=== PATIENT | female | born 1945 | race Caucasian/White ===

== ENCOUNTER 2022-01-16 08:36 | Observation (INO) ==
[2022-01-16] MEDS ORDERED: CeFAZolin Syr 2,000MG/20 ML 2,000 MG/20 ML SYRINGE IVPB ONE (09:23)
[2022-01-16] MEDS: Ringers Solution, Lactated 1,000 ML IVC SCH (09:45)
[2022-01-16] MEDS ORDERED: Acetaminophen IV 1,000 MG/100 ML BAG IVPB ONE (09:46)
[2022-01-16] MEDS ORDERED: Famotidine 20 MG/2 ML VIAL IVP ONE (09:46)
[2022-01-16] MEDS ORDERED: diazePAM 5 MG TABLET PO ONE (09:48)
[2022-01-16 10:08] LABS: Basophils % 0.6 %; Eosinophils # 0.3 K/mcL (0.0-0.6); Eosinophils % 3.7 %; Hematocrit 36.2 % (35.3-44.9); Hemoglobin 11.4 g/dL (11.5-15.4); Immature Granulocytes % 0.4 % (0-4); Lymphocytes # 1.8 K/mcL (0.6-4.6); Lymphocytes % 25.1 %; Mean Corpuscular HGB Conc 31.5 g/dL (31.6-35.5); Mean Corpuscular Hemoglobin 29.7 pg (28.0-33.3); Mean Corpuscular Volume 94.3 fL (83.0-100.0); Mean Platelet Volume 10.9 fL (9.4-12.4); Monocytes # 0.6 K/mcL (0.0-1.3); Monocytes % 8.4 %; Neutrophils # 4.4 K/mcL (1.6-8.9); Platelet Count 157 K/mcL (140-400); Red Blood Count 3.84 M/mcL (3.82-4.97); Red Cell Distribution Width 15.3 % (11.5-14.5); Segmented Neutrophils % 61.8 %; White Blood Count 7.1 K/mcL (4.3-11.1)
[2022-01-16 10:22] LABS: INR 1.1; Prothrombin Time 12.6 Seconds (9.4-12.1)
[2022-01-16 10:24] LABS: Activated Partial Thrombo Time 33.7 Seconds (26.0-36.0)
[2022-01-16] MEDS ORDERED: Lidocaine -MPF 2% 5 ML VIAL ONE (10:39)
[2022-01-16] MEDS ORDERED: Ondansetron 4 MG/2 ML VIAL ONE (10:39)
[2022-01-16] MEDS ORDERED: *HR* Propofol 200 MG/20 ML VIAL IVP ONE (10:39)
[2022-01-16] MEDS ORDERED: Lidocaine HCL 4 ML Topical Solution (Laryng-O-Jet Kit Sterile Pak) TP ONE (10:39)
[2022-01-16] MEDS ORDERED: *HR* Succinylcholine 200 MG/10 ML VIAL IVP ONE (10:39)
[2022-01-16 10:40] LABS: Albumin 3.9 g/dL (3.5-5.7); Albumin/Globulin Ratio 1.2 (1.1-2.2); Bilirubin,Total 0.4 mg/dL (0.3-1.0); Calcium 10.2 mg/dL (8.6-10.3); Globulin 3.2 g/dL (2.4-3.5); Potassium 3.7 mEq/L (3.5-5.1); Total Protein 7.1 g/dL (6.4-8.9)
[2022-01-16 10:56] LABS: Estimated Average Glucose 134 mg/dl; Hemoglobin A1C 6.3 %
[2022-01-16] MEDS ORDERED: Albuterol 2.5 MG/3 ML NEBULIZER ONE (11:31)
[2022-01-16] MEDS ORDERED: Albuterol 2.5 MG/3 ML NEBULIZER IH PRN (11:36)
[2022-01-16] MEDS ORDERED: *HR* FentaNYL (PF) 100 MCG/2 ML VIAL ONE (12:03)
[2022-01-16] MEDS ORDERED: *HR* Midazolam HCl 2 MG/2 ML VIAL ONE (12:03)
[2022-01-16] MEDS ORDERED: ROPIVACAINE/PF/NS 0.25% 1 EACH SYRINGE INTRAART ONE (12:07)
[2022-01-16] MEDS ORDERED: *HR* OxyCODONE Immed Rel 5 MG TABLET PO PRN (12:37)
[2022-01-16] MEDS ORDERED: *HR* OxyCODONE/APAP 5/325 TABLET PO PRN (12:37)
[2022-01-16] MEDS ORDERED: Ketorolac 30 MG/ML VIAL IVP PRN (12:37)
[2022-01-16] MEDS ORDERED: Ondansetron 4 MG/2 ML VIAL IVP PRN (12:37)
[2022-01-16] MEDS ORDERED: Sennosides 8.6 MG TABLET PO PRN (12:37)
[2022-01-16] MEDS ORDERED: ALBUTEROL SULFATE 90 MCG IH PRN (12:52)
[2022-01-16] MEDS ORDERED: Heparin 1,000 UNITS/500 mL 500 ML ONE (13:07)
[2022-01-16] MEDS ORDERED: Vancomycin 1,000 MG VIAL ONE (13:30)
[2022-01-16] MEDS ORDERED: Tranexamic Acid 1,000 MG/10 ML VIAL ONE ×2 (14:04→15:01)
[2022-01-16] MEDS ORDERED: Albuterol 2.5 MG/3 ML NEBULIZER IH SCH (16:00)
[2022-01-16] MEDS: Gabapentin 100 MG CAPSULE PO SCH ×2 (18:46→21:47)
[2022-01-16] MEDS: Ketorolac 30 MG/ML VIAL IVP SCH ×2 (18:52→23:51)
[2022-01-16] MEDS: Acetaminophen 325 MG TABLET PO SCH ×2 (18:53→23:50)
[2022-01-16] MEDS: CeFAZolin 2 GM/120 ML BAG IVPB SCH ×2 (18:58→23:51)
[2022-01-16] MEDS ORDERED: Levalbuterol Neb 1.25 MG/3 ML ONE (19:44)
[2022-01-16] MEDS: Levalbuterol Neb 1.25 MG/3 ML IH SCH ×2 (19:47→23:51)
[2022-01-16] MEDS ORDERED: Budesonide/Formoterol 160/4.5 1 PUFF INH IH ONE (19:50)
[2022-01-16] MEDS: Budesonide/Formoterol 160/4.5 1 PUFF INH IH SCH (19:51)
[2022-01-16] MEDS ORDERED: NON-FORMULARY MEDICATION 1 EACH EACH (Budesonide/Glycopyr/Formoterol [Breztri Aerosphere I IH SCH (21:00)
[2022-01-16] MEDS ORDERED: NON-FORMULARY MEDICATION 1 EACH EACH (Formoterol Fumarate [Perforomist] 20 MCG/2 ML Vial.N IH SCH (21:00)
[2022-01-16] MEDS: Aspirin Enteric Coated 81 MG Tablet PO SCH (21:47)
[2022-01-16] MEDS ORDERED: Budesonide/Formoterol 160/4.5 1 PUFF INH IH SCH (22:00)
[2022-01-17] MEDS: Levalbuterol Neb 1.25 MG/3 ML IH SCH ×4 (03:23→21:01)
[2022-01-17] MEDS: Levothyroxine 25 MCG TABLET PO SCH (06:12)
[2022-01-17] MEDS: Ketorolac 30 MG/ML VIAL IVP SCH ×4 (06:12→23:43)
[2022-01-17] MEDS: Acetaminophen 325 MG TABLET PO SCH ×4 (06:12→23:43)
[2022-01-17] MEDS: *HR* OxyCODONE Immed Rel 5 MG TABLET PO PRN ×2 (09:07→19:54)
[2022-01-17] MEDS: Aspirin Enteric Coated 81 MG Tablet PO SCH ×2 (09:07→19:49)
[2022-01-17] MEDS: Gabapentin 100 MG CAPSULE PO SCH ×3 (09:07→19:49)
[2022-01-17] MEDS: predniSONE 20 MG TABLET PO SCH (09:07)
[2022-01-17] MEDS: *HR* Metformin 500 MG TABLET PO SCH ×2 (09:07→15:51)
[2022-01-17] MEDS: Fluticasone Propionate Nasal 50 MCG/SPRAY BOTTLE NS SCH (09:08)
[2022-01-17] MEDS: Budesonide/Formoterol 160/4.5 1 PUFF INH IH SCH ×2 (10:22→21:01)
[2022-01-17] MEDS: Tiotropium 10 INH DOSE IH SCH (10:24)
[2022-01-17] MEDS: MOM Conc 10 ML UD.LIQ PO PRN (17:51)
[2022-01-17] MEDS: Ringers Solution, Lactated 1,000 ML IVC SCH ×2 (19:48)
[2022-01-18] MEDS: *HR* OxyCODONE Immed Rel 5 MG TABLET PO PRN ×2 (02:46→21:32)
[2022-01-18] MEDS: Levalbuterol Neb 1.25 MG/3 ML IH SCH ×4 (04:13→22:00)
[2022-01-18] MEDS: Ringers Solution, Lactated 1,000 ML IVC SCH (05:50)
[2022-01-18] MEDS: Levothyroxine 25 MCG TABLET PO SCH (05:50)
[2022-01-18] MEDS: Acetaminophen 325 MG TABLET PO SCH ×4 (05:50→23:45)
[2022-01-18] MEDS: Ketorolac 30 MG/ML VIAL IVP SCH ×4 (05:50→23:43)
[2022-01-18] MEDS: predniSONE 20 MG TABLET PO SCH (08:23)
[2022-01-18] MEDS: Gabapentin 100 MG CAPSULE PO SCH ×3 (08:23→21:07)
[2022-01-18] MEDS: *HR* Metformin 500 MG TABLET PO SCH ×2 (08:23→17:54)
[2022-01-18] MEDS: Aspirin Enteric Coated 81 MG Tablet PO SCH ×2 (08:23→21:07)
[2022-01-18] MEDS: Budesonide/Formoterol 160/4.5 1 PUFF INH IH SCH ×2 (10:38→22:00)
[2022-01-18] MEDS: Tiotropium 10 INH DOSE IH SCH (10:38)
[2022-01-18] MEDS: Fluticasone Propionate Nasal 50 MCG/SPRAY BOTTLE NS SCH (12:46)
[2022-01-18] MEDS: MOM Conc 10 ML UD.LIQ PO PRN (21:36)
[2022-01-19 00:08] VITALS: TEMP 97.9
[2022-01-19 03:19] VITALS: BP 144/69; PULSE 65
[2022-01-19] MEDS: Levalbuterol Neb 1.25 MG/3 ML IH SCH ×3 (05:34→15:33)
[2022-01-19] MEDS: Ketorolac 30 MG/ML VIAL IVP SCH ×2 (06:30→14:18)
[2022-01-19] MEDS: Levothyroxine 25 MCG TABLET PO SCH (06:31)
[2022-01-19] MEDS: Acetaminophen 325 MG TABLET PO SCH ×2 (06:31→13:16)
[2022-01-19] MEDS: predniSONE 20 MG TABLET PO SCH (09:00)
[2022-01-19] MEDS: Aspirin Enteric Coated 81 MG Tablet PO SCH (09:00)
[2022-01-19] MEDS: Gabapentin 100 MG CAPSULE PO SCH (09:01)
[2022-01-19] MEDS: Fluticasone Propionate Nasal 50 MCG/SPRAY BOTTLE NS SCH (09:01)
[2022-01-19] MEDS: *HR* Metformin 500 MG TABLET PO SCH (09:01)
[2022-01-19] MEDS: Budesonide/Formoterol 160/4.5 1 PUFF INH IH SCH (10:18)
[2022-01-19] MEDS: Tiotropium 10 INH DOSE IH SCH (10:18)
[2022-01-19 12:31] LABS: Influenza A PCR Negative (Negative); Influenza B PCR Negative (Negative); Resp. Syncytial Virus PCR Negative (Negative)
[2022-01-19 12:49] LABS: SARS-CoV-2 by PCR (In House) Negative (Negative)
[2022-01-19] MEDS: *HR* OxyCODONE Immed Rel 5 MG TABLET PO PRN (13:15)
[2022-01-19 15:35] VITALS: O2SAT 95
== END 2022-01-19 17:20 ==
LOC: SDCAOSI 08:36 → 4WAOSI 08:36
PROVIDERS: ADMIT Orthopaedic Surgery; ATTEND Orthopaedic Surgery

== ENCOUNTER 2022-02-02 13:48 | Inpatient (IN) ==
[~2022-02-02 13:48] MED LIST: *HR* FentaNYL (PF) 100 MCG/2 ML VIAL IVP PRN; *HR* HYDROmorphone PF 0.5 MG/0.5 ML SYRINGE IVP PRN; *HR* OxyCODONE Immed Rel 5 MG TABLET PO PRN; Albuterol 2.5 MG/3 ML NEBULIZER IH PRN; Ondansetron 4 MG/2 ML VIAL IVP PRN
[2022-02-02] MEDS ORDERED: Famotidine 20 MG/2 ML VIAL IVP ONE (14:03)
[2022-02-02] MEDS ORDERED: Albuterol 2.5 MG/3 ML NEBULIZER IH ONE (14:03)
[2022-02-02] MEDS ORDERED: *HR* Succinylcholine 200 MG/10 ML VIAL IVP ONE (14:05)
[2022-02-02] MEDS ORDERED: *HR* Propofol 200 MG/20 ML VIAL IVP ONE (14:05)
[2022-02-02] MEDS ORDERED: Lidocaine -MPF 2% 2 ML VIAL ONE (14:05)
[2022-02-02] MEDS ORDERED: *HR* FentaNYL (PF) 100 MCG/2 ML VIAL ONE (14:05)
[2022-02-02] MEDS ORDERED: Acetaminophen 325 MG TABLET PO PRN (17:12)
[2022-02-02] MEDS ORDERED: Naloxone 0.4 MG/ML INJ IVP PRN (17:12)
[2022-02-02] MEDS ORDERED: Ondansetron 4 MG/2 ML VIAL IVP PRN (17:12)
[2022-02-02] MEDS: *HR* HYDROcodone/Acet 5/325 mg TABLET PO PRN (17:42)
[2022-02-02 17:58] LABS: Basophils # 0.1 K/mcL (0.0-0.2); Basophils % 0.5 %; Eosinophils # 0.3 K/mcL (0.0-0.6); Eosinophils % 3.4 %; Hematocrit 34.5 % (35.3-44.9); Hemoglobin 10.7 g/dL (11.5-15.4); Immature Granulocytes % 0.3 % (0-4); Lymphocytes # 2.5 K/mcL (0.6-4.6); Lymphocytes % 26.1 %; Mean Corpuscular Hemoglobin 29.2 pg (28.0-33.3); Mean Corpuscular Volume 94.3 fL (83.0-100.0); Mean Platelet Volume 10.3 fL (9.4-12.4); Monocytes # 0.6 K/mcL (0.0-1.3); Monocytes % 5.7 %; Neutrophils # 6.2 K/mcL (1.6-8.9); Platelet Count 247 K/mcL (140-400); Red Blood Count 3.66 M/mcL (3.82-4.97); Red Cell Distribution Width 15.6 % (11.5-14.5); White Blood Count 9.7 K/mcL (4.3-11.1)
[2022-02-02 18:04] LABS: INR 1.2; Prothrombin Time 13.6 Seconds (9.4-12.1)
[2022-02-02 18:18] LABS: Calcium 10.3 mg/dL (8.6-10.3); Magnesium 1.6 mg/dL (1.6-2.6); Potassium 3.1 mEq/L (3.5-5.1)
[2022-02-02] MEDS ORDERED: Dextrose Gel 15 GM/37.5 ML TUBE PO PRN ×2 (18:43)
[2022-02-02] MEDS ORDERED: *HR* Dextrose 50 % in Water (Syg) 50 ML SYRINGE IVP PRN (18:43)
[2022-02-02] MEDS ORDERED: D5% in Water 1,000 ML IVC PRN (18:43)
[2022-02-02] MEDS: Sennosides/Docusate Sodium TABLET PO SCH (19:54)
[2022-02-02] MEDS: Insulin LISPRO 300 UNITS/3 ML VIAL SUBQ SCH ×2 (19:57→19:58)
[2022-02-02] MEDS ORDERED: polyethylene glycoL 3350 17 GM POWD.PACK PO SCH (21:00)
[2022-02-02] MEDS: Ipratropium/Albuterol Neb 3 ML IH SCH ×2 (21:42→23:20)
[2022-02-02] MEDS: *HR* LORazepam 1 MG TABLET PO PRN (22:38)
[2022-02-03] MEDS: Ipratropium/Albuterol Neb 3 ML IH SCH ×4 (03:45→21:30)
[2022-02-03 07:05] LABS: Red Cell Distribution Width 15.8 % (11.5-14.5)
[2022-02-03 07:07] LABS: Basophils % 0.5 %; Eosinophils # 0.4 K/mcL (0.0-0.6); Eosinophils % 4.9 %; Hematocrit 32.7 % (35.3-44.9); Immature Granulocytes % 0.4 % (0-4); Immature Platelets 4.9 % (1.1-6.1); Lymphocytes # 2.1 K/mcL (0.6-4.6); Lymphocytes % 28.2 %; Mean Corpuscular HGB Conc 30.6 g/dL (31.6-35.5); Mean Corpuscular Hemoglobin 29.2 pg (28.0-33.3); Mean Corpuscular Volume 95.3 fL (83.0-100.0); Mean Platelet Volume 11.3 fL (9.4-12.4); Monocytes # 0.6 K/mcL (0.0-1.3); Monocytes % 7.8 %; Neutrophils # 4.4 K/mcL (1.6-8.9); Platelet Count 195 K/mcL (140-400); Red Blood Count 3.43 M/mcL (3.82-4.97); Segmented Neutrophils % 58.2 %; White Blood Count 7.6 K/mcL (4.3-11.1)
[2022-02-03 07:47] LABS: Calcium 9.5 mg/dL (8.6-10.3); Magnesium 1.9 mg/dL (1.6-2.6); Potassium 3.7 mEq/L (3.5-5.1)
[2022-02-03] MEDS: Sennosides/Docusate Sodium TABLET PO SCH ×2 (09:10→20:21)
[2022-02-03] MEDS: *HR* Enoxaparin 40 MG/0.4 ML SYRINGE SQ SCH (09:10)
[2022-02-03] MEDS: Insulin LISPRO 300 UNITS/3 ML VIAL SUBQ SCH ×4 (09:13→20:22)
[2022-02-03] MEDS: *HR* HYDROcodone/Acet 5/325 mg TABLET PO PRN (09:25)
[2022-02-03 12:37] LABS: Estimated Average Glucose 123 mg/dl; Hemoglobin A1C 5.9 %
[2022-02-03] MEDS: Gabapentin 100 MG CAPSULE PO SCH ×2 (16:28→20:21)
[2022-02-03] MEDS: polyethylene glycoL 3350 17 GM POWD.PACK PO SCH (16:51)
[2022-02-03] MEDS: Aspirin 81 MG TAB.CHEW PO SCH (20:21)
[2022-02-03] MEDS: Budesonide Neb 0.5 MG/2 ML IH SCH (21:34)
[2022-02-04] MEDS ORDERED: *HR* Metoprolol 5 MG/5 ML VIAL IVP ONE (00:42)
[2022-02-04] MEDS: Ipratropium/Albuterol Neb 3 ML IH SCH ×2 (03:49→09:24)
[2022-02-04] MEDS: *HR* Enoxaparin 40 MG/0.4 ML SYRINGE SQ SCH (06:34)
[2022-02-04] MEDS: Insulin LISPRO 300 UNITS/3 ML VIAL SUBQ SCH ×4 (08:15→19:47)
[2022-02-04] MEDS: Gabapentin 100 MG CAPSULE PO SCH ×3 (08:16→19:47)
[2022-02-04] MEDS: Levothyroxine 25 MCG TABLET PO SCH (08:16)
[2022-02-04] MEDS: Aspirin 81 MG TAB.CHEW PO SCH ×2 (08:16→19:47)
[2022-02-04] MEDS: Sennosides/Docusate Sodium TABLET PO SCH ×2 (08:17→19:47)
[2022-02-04 08:49] LABS: Basophils % 0.6 %; Eosinophils # 0.3 K/mcL (0.0-0.6); Eosinophils % 4.1 %; Hematocrit 32.3 % (35.3-44.9); Hemoglobin 10.1 g/dL (11.5-15.4); Immature Granulocytes % 0.3 % (0-4); Lymphocytes % 28.1 %; Mean Corpuscular HGB Conc 31.3 g/dL (31.6-35.5); Mean Corpuscular Hemoglobin 29.2 pg (28.0-33.3); Mean Corpuscular Volume 93.4 fL (83.0-100.0); Monocytes # 0.5 K/mcL (0.0-1.3); Monocytes % 7.2 %; Neutrophils # 4.2 K/mcL (1.6-8.9); Platelet Count 232 K/mcL (140-400); Red Blood Count 3.46 M/mcL (3.82-4.97); Red Cell Distribution Width 15.9 % (11.5-14.5); Segmented Neutrophils % 59.7 %; White Blood Count 7.1 K/mcL (4.3-11.1)
[2022-02-04 09:11] LABS: Calcium 9.8 mg/dL (8.6-10.3); Magnesium 1.8 mg/dL (1.6-2.6); Potassium 3.5 mEq/L (3.5-5.1)
[2022-02-04] MEDS: polyethylene glycoL 3350 17 GM POWD.PACK PO SCH (10:52)
[2022-02-04] MEDS: Budesonide Neb 0.5 MG/2 ML IH SCH ×2 (11:30→22:23)
[2022-02-04] MEDS: *HR* HYDROcodone/Acet 5/325 mg TABLET PO PRN (13:20)
[2022-02-04] MEDS: Bisacodyl 10 MG RECTAL SUPPOSITORY RC SCH (18:39)
[2022-02-04] MEDS ORDERED: Potassium Chloride Elixir 20 MEQ/15 ML UDC PO ONE (21:11)
[2022-02-04] MEDS ORDERED: Magnesium Sulfate 1 GM/102 ML PIGGYBACK IVPB ONE (21:17)
[2022-02-04] MEDS: *HR* LORazepam 1 MG TABLET PO PRN (21:51)
[2022-02-05 01:44] LABS: Basophils % 0.4 %; Eosinophils # 0.3 K/mcL (0.0-0.6); Eosinophils % 3.9 %; Hematocrit 31.7 % (35.3-44.9); Immature Granulocytes % 0.4 % (0-4); Lymphocytes # 2.5 K/mcL (0.6-4.6); Lymphocytes % 34.7 %; Mean Corpuscular HGB Conc 31.5 g/dL (31.6-35.5); Mean Corpuscular Hemoglobin 29.8 pg (28.0-33.3); Mean Corpuscular Volume 94.3 fL (83.0-100.0); Mean Platelet Volume 10.4 fL (9.4-12.4); Monocytes # 0.7 K/mcL (0.0-1.3); Neutrophils # 3.8 K/mcL (1.6-8.9); Platelet Count 212 K/mcL (140-400); Red Blood Count 3.36 M/mcL (3.82-4.97); Red Cell Distribution Width 15.7 % (11.5-14.5); Segmented Neutrophils % 51.6 %; White Blood Count 7.3 K/mcL (4.3-11.1)
[2022-02-05 02:03] LABS: Calcium 9.8 mg/dL (8.6-10.3); Magnesium 2.1 mg/dL (1.6-2.6); Potassium 3.7 mEq/L (3.5-5.1)
[2022-02-05] MEDS ORDERED: *HR* Metoprolol 5 MG/5 ML VIAL IVP ONE (05:32)
[2022-02-05] MEDS: *HR* Enoxaparin 40 MG/0.4 ML SYRINGE SQ SCH (05:37)
[2022-02-05] MEDS: Insulin LISPRO 300 UNITS/3 ML VIAL SUBQ SCH ×4 (08:26→20:34)
[2022-02-05] MEDS: Gabapentin 100 MG CAPSULE PO SCH ×3 (08:57→21:13)
[2022-02-05] MEDS: Levothyroxine 25 MCG TABLET PO SCH (08:57)
[2022-02-05] MEDS: Aspirin 81 MG TAB.CHEW PO SCH ×2 (08:57→21:13)
[2022-02-05] MEDS: Sennosides/Docusate Sodium TABLET PO SCH ×2 (08:58→21:13)
[2022-02-05] MEDS: Bisacodyl 10 MG RECTAL SUPPOSITORY RC SCH (10:07)
[2022-02-05] MEDS: *HR* HYDROcodone/Acet 5/325 mg TABLET PO PRN ×2 (10:07→18:10)
[2022-02-05] MEDS: polyethylene glycoL 3350 17 GM POWD.PACK PO SCH (10:14)
[2022-02-05] MEDS: Budesonide Neb 0.5 MG/2 ML IH SCH ×2 (10:19→20:27)
[2022-02-05] MEDS: *HR* OxyCODONE Immed Rel 5 MG TABLET PO PRN (22:21)
[2022-02-05] MEDS: *HR* LORazepam 1 MG TABLET PO PRN (22:21)
[2022-02-06] MEDS: *HR* Enoxaparin 40 MG/0.4 ML SYRINGE SQ SCH (05:21)
[2022-02-06 06:17] LABS: Basophils % 0.4 %; Eosinophils # 0.4 K/mcL (0.0-0.6); Eosinophils % 5.8 %; Hematocrit 31.2 % (35.3-44.9); Hemoglobin 9.9 g/dL (11.5-15.4); Immature Granulocytes % 0.4 % (0-4); Lymphocytes # 2.7 K/mcL (0.6-4.6); Lymphocytes % 40.3 %; Mean Corpuscular HGB Conc 31.7 g/dL (31.6-35.5); Mean Corpuscular Hemoglobin 30.1 pg (28.0-33.3); Mean Corpuscular Volume 94.8 fL (83.0-100.0); Mean Platelet Volume 10.7 fL (9.4-12.4); Monocytes # 0.6 K/mcL (0.0-1.3); Monocytes % 8.8 %; Platelet Count 213 K/mcL (140-400); Red Blood Count 3.29 M/mcL (3.82-4.97); Red Cell Distribution Width 15.6 % (11.5-14.5); Segmented Neutrophils % 44.3 %; White Blood Count 6.7 K/mcL (4.3-11.1)
[2022-02-06 06:37] LABS: Albumin 3.4 g/dL (3.5-5.7); Albumin/Globulin Ratio 1.4 (1.1-2.2); Bilirubin,Total 0.4 mg/dL (0.3-1.0); Calcium 9.3 mg/dL (8.6-10.3); Globulin 2.4 g/dL (2.4-3.5); Potassium 3.4 mEq/L (3.5-5.1); Total Protein 5.8 g/dL (6.4-8.9)
[2022-02-06] MEDS: Budesonide Neb 0.5 MG/2 ML IH SCH ×2 (07:50→20:18)
[2022-02-06] MEDS: Insulin LISPRO 300 UNITS/3 ML VIAL SUBQ SCH ×4 (08:16→20:07)
[2022-02-06] MEDS: Aspirin 81 MG TAB.CHEW PO SCH ×2 (08:16→19:54)
[2022-02-06] MEDS: Sennosides/Docusate Sodium TABLET PO SCH ×2 (08:17→19:54)
[2022-02-06] MEDS: Gabapentin 100 MG CAPSULE PO SCH ×3 (08:17→19:54)
[2022-02-06] MEDS: Levothyroxine 25 MCG TABLET PO SCH (08:17)
[2022-02-06] MEDS: Bisacodyl 10 MG RECTAL SUPPOSITORY RC SCH (08:17)
[2022-02-06] MEDS ORDERED: Potassium Chloride Elixir 20 MEQ/15 ML UDC PO ONE ×3 (09:27→17:00)
[2022-02-06] MEDS ORDERED: *HR* FentaNYL (PF) 100 MCG/2 ML VIAL ONE ×2 (10:20→11:16)
[2022-02-06] MEDS ORDERED: *HR* Propofol 200 MG/20 ML VIAL IVP ONE (10:21)
[2022-02-06] MEDS ORDERED: *HR* Succinylcholine 200 MG/10 ML VIAL IVP ONE (10:21)
[2022-02-06] MEDS ORDERED: Lidocaine -MPF 2% 2 ML VIAL ONE (10:21)
[2022-02-06] MEDS ORDERED: Ondansetron 4 MG/2 ML VIAL ONE (10:21)
[2022-02-06] MEDS ORDERED: Ropivacaine/PF 0.5% 30 ML VIAL ONE (10:22)
[2022-02-06] MEDS ORDERED: *HR* Rocuronium Bromide 50 MG/5 ML VIAL ONE (10:25)
[2022-02-06] MEDS: polyethylene glycoL 3350 17 GM POWD.PACK PO SCH (11:03)
[2022-02-06] MEDS ORDERED: CeFAZolin Syr 2,000MG/20 ML 2,000 MG/20 ML SYRINGE IVPB ONE (11:08)
[2022-02-06] MEDS ORDERED: Ringers Solution, Lactated 1,000 ML IVC SCH (11:15)
[2022-02-06] MEDS ORDERED: Acetaminophen IV 1,000 MG/100 ML BAG IVPB ONE (11:53)
[2022-02-06] MEDS ORDERED: Tranexamic Acid 1,000 MG/10 ML VIAL ONE ×2 (11:55→13:46)
[2022-02-06] MEDS ORDERED: Vancomycin 1,000 MG VIAL ONE (11:56)
[2022-02-06] MEDS ORDERED: Sugammadex Sodium 200 MG/2 ML VIAL IV ONE (13:47)
[2022-02-06] MEDS ORDERED: Povidone-Iodine 45 ML, Sodium Chloride IRRigation 1,000 ML IR ONE (15:25)
[2022-02-06] MEDS: *HR* HYDROcodone/Acet 5/325 mg TABLET PO PRN (19:54)
[2022-02-06] MEDS: CeFAZolin 2,000 MG/120 ML BAG IVPB SCH (22:50)
[2022-02-06] MEDS: *HR* OxyCODONE Immed Rel 5 MG TABLET PO PRN (22:59)
[2022-02-07] MEDS: *HR* HYDROcodone/Acet 5/325 mg TABLET PO PRN ×2 (03:18→10:41)
[2022-02-07 05:12] LABS: Basophils % 0.2 %; Eosinophils % 0.1 %; Hematocrit 29.2 % (35.3-44.9); Immature Granulocytes % 0.7 % (0-4); Lymphocytes # 1.4 K/mcL (0.6-4.6); Lymphocytes % 13.2 %; Mean Corpuscular HGB Conc 30.8 g/dL (31.6-35.5); Mean Corpuscular Volume 94.2 fL (83.0-100.0); Monocytes # 0.7 K/mcL (0.0-1.3); Monocytes % 6.4 %; Neutrophils # 8.5 K/mcL (1.6-8.9); Platelet Count 262 K/mcL (140-400); Red Cell Distribution Width 15.6 % (11.5-14.5); Segmented Neutrophils % 79.4 %
[2022-02-07 05:14] LABS: White Blood Count 10.7 K/mcL (4.3-11.1)
[2022-02-07 05:33] LABS: Calcium 9.3 mg/dL (8.6-10.3); Magnesium 1.7 mg/dL (1.6-2.6); Phosphorous 2.9 mg/dL (2.7-4.5); Potassium 4.1 mEq/L (3.5-5.1)
[2022-02-07] MEDS: CeFAZolin 2,000 MG/120 ML BAG IVPB SCH (06:35)
[2022-02-07] MEDS: Aspirin 81 MG TAB.CHEW PO SCH (07:39)
[2022-02-07] MEDS: Sennosides/Docusate Sodium TABLET PO SCH (07:39)
[2022-02-07] MEDS: Insulin LISPRO 300 UNITS/3 ML VIAL SUBQ SCH ×2 (07:39→12:34)
[2022-02-07] MEDS: Gabapentin 100 MG CAPSULE PO SCH (07:40)
[2022-02-07] MEDS: Levothyroxine 25 MCG TABLET PO SCH (07:40)
[2022-02-07] MEDS: *HR* OxyCODONE Immed Rel 5 MG TABLET PO PRN (07:40)
[2022-02-07] MEDS: Bisacodyl 10 MG RECTAL SUPPOSITORY RC SCH (07:50)
[2022-02-07] MEDS: Budesonide Neb 0.5 MG/2 ML IH SCH (09:46)
[2022-02-07] MEDS: polyethylene glycoL 3350 17 GM POWD.PACK PO SCH (10:41)
[2022-02-07 11:30] VITALS: BP 149/77; PULSE 74; TEMP 98; O2SAT 96
[2022-02-07] MEDS ORDERED: Ketorolac 30 MG/ML VIAL IM SCH (12:00)
[2022-02-07] MEDS ORDERED: Flu Vac QV 22-23 (6MOS UP)/PF 0.5 ML SYRINGE IM ONE (13:14)
== END 2022-02-07 15:00 | DRG 516 ==
LOC: 4WAOSI 13:48 → SDCAOSI 13:48 → SUATTDRO 02-05 15:54
PROVIDERS: ADMIT Pharmacist; ATTEND Internal Medicine